=== PATIENT | female | born 1985 | race Two or more races ===

== ENCOUNTER → 2017-01-12 | Outpatient (CLI) | payer OTHER ==
--- NOTE | 2017-01-12 12:09 | XR ---
EXAMINATION TYPE: XR ankle complete LT DATE OF EXAM: 01/12/2017 COMPARISON: NONE HISTORY: Pain FINDINGS: Three views of the ankle demonstrate the ankle mortise to be intact and symmetric. The joint spaces are preserved. The osseous structures are intact. IMPRESSION: 1. No definite acute fracture or dislocation, if symptoms persist follow-up study in 7 to 10 days wou ld be suggested.
--- NOTE | 2017-01-12 12:11 | XR ---
EXAMINATION TYPE: XR foot complete LT DATE OF EXAM: 01/12/2017 COMPARISON: NONE HISTORY: Pain TECHNIQUE: Three views are submitted. FINDINGS: The osseous structures are intact and the joint spaces are preserved. There is no acute fracture or dislocation. IMPRESSION: 1. No acute fracture or dislocation. If symptoms persist, follow-up exam in 7 to 10 days could be ob tained.
== END | disposition home or self-care (01) ==
LOC: RADXRMAIN 11:45
PROVIDERS: ATTEND Emergency Medicine
DX: S93.402A Sprain of unspecified ligament of left ankle, initial encounter (principal); S93.602A Unspecified sprain of left foot, initial encounter